=== PATIENT | female | born 1995 | race Caucasian/White ===

== ENCOUNTER 2016-06-07 18:08 | Emergency (ER) | payer OTHER ==
[~2016-06-07] VITALS: Ht 160 cm; Wt 76.2 kg
[2016-06-07 18:32] LABS: HEMOGLOBIN 15.5 g/dL (11.7-16.4)
[2016-06-07] MEDS ORDERED: KETOROLAC 30 MG/1 ML ONE (18:42)
[2016-06-07 18:44] LABS: BLOOD UREA NITROGEN 11 mg/dL (7-18)
[2016-06-07] MEDS ORDERED: KETOROLAC 30 MG/1 ML IM ONE (19:00)
[2016-06-07 19:08] LABS: PATH.CAST-FLAG NOT PRESENT; SPERM-FLAG NOT PRESENT; SRC-FLAG NOT PRESENT; XTAL-FLAG NOT PRESENT; YLC-FLAG NOT PRESENT
[2016-06-07] MEDS ORDERED: CEFTRIAXONE 1,000 MG ONE (19:58)
[2016-06-07] MEDS ORDERED: CEFTRIAXONE 1,000 MG IM ONE (20:00)
[2016-06-07 20:32] VITALS: BP 126/68
== END 2016-06-07 20:34 | disposition home or self-care (01) ==
LOC: ED 20:28
DX: N30.01 Acute cystitis with hematuria (principal); M54.5 Low back pain
CPT/HCPCS: 36415; 80048; 81001; 82040; 84703; 85025; 87077; 87086; 96372; 99284; J0696; J1885

== ENCOUNTER 2020-01-23 18:00 | Emergency (ER) | payer OTHER ==
[~2020-01-23] VITALS: Ht 162.6 cm; Wt 80.3 kg
[2020-01-23 18:52] VITALS: BP 116/75
== END 2020-01-23 19:04 | disposition left against medical advice (07) ==
LOC: ED 18:30
DX: U07.1 COVID-19 (principal); B34.9 Viral infection, unspecified; R05 Cough; J02.9 Acute pharyngitis, unspecified; M79.10 Myalgia, unspecified site
CPT/HCPCS: 87635; 99283

== ENCOUNTER 2020-05-16 00:10 | Emergency (ER) | payer SELFPAY ==
[~2020-05-16] VITALS: Ht 162.6 cm; Wt 82.0 kg
--- NOTE | 2020-05-16 00:29 | NUR ---
PT HERE FOR CHEST PAIN THAT STARTED A COUPLE WEEKS AGO WORSE WHEN BREATHING DEEP. 5/10 AT THIS TIME. RESTING COMFORTABLLY IN RELMA, ERP PLACED ORDERS. NO THER NEEDS AT THIS TIME
--- NOTE | 2020-05-16 00:31 | NUR ---
lab at bedside
--- NOTE | 2020-05-16 00:42 | NUR ---
Covering primary nurse for break, pt in NAD. Waiting for PCXR, will continue to monitor.
[2020-05-16 00:44] LABS: BASOPHILS % (AUTO) 1 % (0-1); EOSINOPHILS % (AUTO) 2 % (1-7); LYMPHOCYTES % (AUTO) 41 % (22-44); MEAN CORPUSCULAR HEMOGLOBIN 30.4 pg (27.0-34.8); MEAN CORPUSCULAR HGB CONC 33.9 g/dL (32.4-35.8); MEAN PLATELET VOLUME 7.1 fL (7.4-10.4); MONOCYTES % (AUTO) 11 % (2-9); NEUTROPHILS % (AUTO) 44 % (42-75); PLATELET COUNT 263 x10^3/uL (130-400); RED CELL DISTRIBUTION WIDTH 13.5 % (9.6-15.2)
[2020-05-16 00:45] LABS: MD NO
[2020-05-16 00:56] LABS: ALBUMIN 3.8 g/dL (3.4-5.0); ANION GAP 6 mmol/L (5-15); CALCIUM 8.5 mg/dL (8.5-10.1); CHLORIDE 109 mmol/L (98-107); CREATININE 0.85 mg/dL (0.55-1.02)
[2020-05-16 01:00] LABS: TROPONIN I < 0.015 ng/mL (0.000-0.045)
[2020-05-16] MEDS ORDERED: LIDOCAINE-MPF 1%, 5ML ONE (01:15)
[2020-05-16 01:25] VITALS: BP 100/63
== END 2020-05-16 03:08 | disposition home or self-care (01) ==
LOC: ED 00:56
DX: R07.89 Other chest pain (principal); J02.9 Acute pharyngitis, unspecified
CPT/HCPCS: 36415; 71045; 80048; 82040; 84484; 84703; 85025; 93005; 99285